=== PATIENT | female | born 1990 ===

== ENCOUNTER 2023-09-28 06:54 | Inpatient (IN) | payer OTHER ==
[~2023-09-28] VITALS: Ht 160 cm; Wt 81.2 kg
[2023-09-28 08:09] LABS: HEMATOCRIT 36.8 % (36.0-45.00); HEMOGLOBIN 12.5 g/dL (12.0-15.00); MEAN CELL VOLUME 85.4 fL (80.00-100.00); MEAN CORPUSCULAR HEMOGLOBIN 28.9 pg (27.00-32.0); MEAN CORPUSCULAR HGB CONC 33.9 g/dl (32.0-36.0); PLATELET COUNT 332 K/uL (150-450); RED BLOOD COUNT 4.31 M/uL (4.00-6.00); RED CELL DISTRIBUTION WIDTH 12.9 % (11.5-14.5)
[2023-09-28 08:10] LABS: URINE APPEARANCE Clear; URINE BACTERIA 1138.8 uL (0.0-1933); URINE BILIRRUBIN Negative (NEGATIVE); URINE BLOOD Moderate; URINE COLOR Yellow; URINE EPITHELIAL CELLS 17.4 uL (0.0-38.8); URINE GLUCOSE Negative (NEGATIVE); URINE LEUKOCYTE Small; URINE NITRATE Negative; URINE PROTEIN Negative (NEGATIVE); URINE RBC 109.3 uL (0.0-20.8); URINE UROBILINOGEN 0.2 E.U./dl; URINE WBC 26.1 uL (0.0-23.2)
[2023-09-28] MEDS ORDERED: RINGERS SOLUTION,LACTATED 1,000 ML IV SCH ×2 (08:30→20:30)
[2023-09-28 08:39] LABS: INR < 0.93; PARTIAL THROMBOPLASTIN TIME 30.5 SECONDS (22.0-34.0); PROTHROMBIN TIME 9.8 SECONDS (9.0-11.5)
[2023-09-28] MEDS ORDERED: OXYTOCIN 500 ML IV SCH (08:45)
[2023-09-28 08:47] LABS: ALBUMIN 2.6 gm/dL (3.4-5.0); BILIRUBIN TOTAL 0.43 mg/dL (0.3-1.2); CALCIUM 9.1 mg/dL (8.5-10.1); CREATININE SERUM 0.58 mg/dL (0.55-1.02); GFR 121.25; GLOBULINA 4.1 G/DL (2.4-3.5); POTASSIUM 4.28 mEq/L (3.5-5.1); TOTAL PROTEIN 6.7 gm/dL (6.4-8.2)
[2023-09-28] MEDS ORDERED: PRENATAL CAPLE1 EAC1 PO (09:11)
[2023-09-28 10:40] LABS: URINE SPERM FEW
[2023-09-28] MEDS ORDERED: MORPHINE SULFATE 4 MG/ML CARTRIDGE IV ONE (12:45)
[2023-09-28] MEDS ORDERED: CEFAZOLIN SODIUM 1,000 MG VIAL IV ONE (18:30)
[2023-09-28] MEDS ORDERED: AZITHROMYCIN 500 MG VIAL IV ONE (18:30)
[2023-09-28] MEDS ORDERED: OXYTOCIN 1,000 ML IV SCH (20:30)
[2023-09-28] MEDS ORDERED: CHLORHEXIDINE GLUCONATE 120 ML BOTTLE TOP SCH (20:30)
[2023-09-28] MEDS ORDERED: ERYTHROMYCIN BASE 1 GM TUBE OP SCH (20:30)
[2023-09-28] MEDS ORDERED: OXYTOCIN 10 UNITS/ML VIAL ONE (21:47)
[2023-09-28] MEDS ORDERED: ERYTHROMYCIN BASE 3.5 GM OINT...G. OP ONE (21:48)
[2023-09-29] MEDS ORDERED: IBUprofen 800 MG TABLET PO SCH (01:00)
[2023-09-29 07:33] LABS: HEMATOCRIT 25.7 % (36.0-45.00); MEAN CELL VOLUME 76.9 fL (80.00-100.00); PLATELET COUNT 189 K/uL (150-450); RED BLOOD COUNT 3.35 M/uL (4.00-6.00)
[2023-09-29 07:42] LABS: HEMOGLOBIN 8.5 g/dL (12.0-15.00); MEAN CORPUSCULAR HEMOGLOBIN 25.3 pg (27.00-32.0); RED CELL DISTRIBUTION WIDTH 22.5 % (11.5-14.5)
[2023-09-29] MEDS ORDERED: DOCUSATE SODIUM 100MG CAP PO SCH (09:00)
[2023-09-29] MEDS ORDERED: SIMETHICONE 125 MG CAPSULE PO SCH (09:00)
[2023-09-29] MEDS ORDERED: OxyCODONE HCL/APAP UD (PERCOCET) PO PRN (09:00)
[2023-09-29] MEDS ORDERED: NAPROXEN 500 MG TABLET PO SCH (09:19)
[2023-09-29] MEDS ORDERED: ACETAMINOPHEN WITH CODEINE 1 UDTAB TABLET PO PRN (09:30)
[2023-09-30] MEDS ORDERED: FAMOtidine 20 MG TABLET PO SCH (18:00)
[2023-10-01] MEDS ORDERED: Tylenol #3 PO (10:08)
[2023-10-01] MEDS ORDERED: NAPR500T14 PO (10:08)
== END 2023-10-01 15:01 | disposition home or self-care (01) | DRG 788 ==
LOC: OB/GYN 06:54 → LDR 06:54 → O/R 06:54 → OB/GYN 09-29 01:20 → O/R 09-29 20:06 → OB/GYN 09-29 20:20
PROVIDERS: Student in an Organized Health Care Education/Training Program; ADMIT Obstetrics & Gynecology; ATTEND Obstetrics & Gynecology
PROC: 4A1HXCZ Monitoring of Products of Conception, Cardiac Rate, External Approach (ICD-10-PCS; 2023-09-28)
PROC: 10D00Z1 Extraction of Products of Conception, Low, Open Approach (ICD-10-PCS; principal; 2023-09-28 23:30)
DX: O82 Encounter for cesarean delivery without indication (principal); O62.1 Secondary uterine inertia; Z3A.39 39 weeks gestation of pregnancy; Z37.0 Single live birth; Z20.822 Contact with and (suspected) exposure to COVID-19